=== PATIENT | male | born 1960 | race Caucasian/White ===

== ENCOUNTER 2019-09-29 04:54 | Emergency (ER) | payer OTHER ==
[~2019-09-29] VITALS: Ht 182.9 cm; Wt 195.0 kg
[~2019-09-29 04:54] MED LIST: ATOR20TA66 PO; HYDR-3965 PO; NAPR-232 PO; NITR0.4T SL; PRED10TA PO
[2019-09-29] MEDS ORDERED: GUAI120L55 PO (07:25)
[2019-09-29 07:32] VITALS: BP 139/76
== END 2019-09-29 07:39 | disposition home or self-care (01) ==
LOC: ER 04:56
DX: B34.9 Viral infection, unspecified (principal); R05 Cough; M79.10 Myalgia, unspecified site; E78.00 Pure hypercholesterolemia, unspecified; M19.90 Unspecified osteoarthritis, unspecified site; F17.210 Nicotine dependence, cigarettes, uncomplicated; F12.90 Cannabis use, unspecified, uncomplicated; Z98.890 Other specified postprocedural states; Z79.899 Other long term (current) drug therapy
CPT/HCPCS: 71045; 87502; 87503; 99284

== ENCOUNTER 2019-10-03 04:23 | Emergency (ER) | payer OTHER ==
[~2019-10-03] VITALS: Ht 182.9 cm; Wt 88.6 kg
[~2019-10-03 04:23] MED LIST changes: +GUAI120L55 PO
[2019-10-03 04:27] VITALS: BP 135/78
[2019-10-03] MEDS ORDERED: BENZ-16 PO (04:47)
[2019-10-03] MEDS ORDERED: ALBU8.5H8 INH (04:51)
== END 2019-10-03 04:54 | disposition home or self-care (01) ==
LOC: ER 04:24
DX: R05 Cough (principal); R53.83 Other fatigue; R53.1 Weakness; E78.00 Pure hypercholesterolemia, unspecified; M19.90 Unspecified osteoarthritis, unspecified site; F12.90 Cannabis use, unspecified, uncomplicated; Z98.890 Other specified postprocedural states; Z79.899 Other long term (current) drug therapy
CPT/HCPCS: 99283

== ENCOUNTER 2020-06-29 06:17 | Emergency (ER) | payer OTHER ==
[~2020-06-29] VITALS: Ht 182.9 cm; Wt 88.6 kg
[~2020-06-29 06:17] MED LIST changes: +ALBU8.5H8 INH; -ATOR20TA66 PO; -HYDR-3965 PO; -NAPR-232 PO; -NITR0.4T SL; -PRED10TA PO
[2020-06-29 06:24] VITALS: BP 124/88
== END 2020-06-29 07:53 | disposition home or self-care (01) ==
LOC: ER 06:18
DX: R53.83 Other fatigue (principal); J06.9 Acute upper respiratory infection, unspecified; B34.9 Viral infection, unspecified; R43.8 Other disturbances of smell and taste; R05 Cough; R07.89 Other chest pain; E78.00 Pure hypercholesterolemia, unspecified; F12.90 Cannabis use, unspecified, uncomplicated; M19.90 Unspecified osteoarthritis, unspecified site; Z98.890 Other specified postprocedural states; Z79.899 Other long term (current) drug therapy
CPT/HCPCS: 36415; 99282

== ENCOUNTER 2021-12-07 13:06 | Emergency (ER) | payer OTHER ==
[~2021-12-07] VITALS: Ht 182.9 cm; Wt 91.4 kg
[~2021-12-07 13:06] MED LIST changes: +ALBU8.5H17 INH; -ALBU8.5H8 INH
[2021-12-07 13:21] VITALS: BP 122/67
[2021-12-07 13:51] LABS: BASOPHILS % (AUTO) 0.2 % (0-1); EOSINOPHILS # (AUTO) 0.2 X10'3 (0-0.9); EOSINOPHILS % (AUTO) 2.3 % (0-6); HEMOGLOBIN 14.9 g/dl (14.0-17.9); LYMPHOCYTES # (AUTO) 0.4 X10'3 (1.1-4.8); LYMPHOCYTES % (AUTO) 4.6 % (21-51); MEAN CORPUSCULAR HEMOGLOBIN 29.9 PG (27.0-31.0); MEAN CORPUSCULAR HGB CONC 33.8 g/dL (33.0-36.5); MEAN CORPUSCULAR VOLUME 88.3 FL (78-98); MONOCYTES % (AUTO) 11.5 % (2-12); NEUTROPHILS # (AUTO) 7.1 X10'3 (1.8-7.7); NEUTROPHILS % (AUTO) 81.4 % (42-75); PLATELET COUNT 220 X10'3 (140-440); RED BLOOD COUNT 4.98 X10'6 (4.70-6.10); WHITE BLOOD COUNT 8.7 X10'3 (4.5-11.0)
[2021-12-07 14:06] LABS: ALANINE AMINOTRANSFERASE 21 U/L (12-78); ALBUMIN 3.9 G/DL (3.4-5.0); ALBUMIN/GLOBULIN RATIO 1.1 (1.1-1.5); ALKALINE PHOSPHATASE 56 IU/L (46-116); ANION GAP 6 (8-16); ASPARTATE AMINO TRANSFERASE 15 U/L (10-37); BILIRUBIN,TOTAL 0.6 MG/DL (0.1-1.0); BLOOD UREA NITROGEN 14 MG/DL (7-18); BUN/CREATININE RATIO 16.1 (5.4-32.0); CHLORIDE 104 MMOL/L (99-107); CREATININE 0.87 MG/DL (0.60-1.10); GLUCOSE 92 MG/DL (70-104); POTASSIUM 3.7 MMOL/L (3.5-5.1); SODIUM 136 MMOL/L (135-145); TOTAL PROTEIN 7.4 G/DL (6.4-8.2); eGFR 89 ML/MIN
--- NOTE | 2021-12-07 15:48 | NUR ---
DR. SHELTON AT BEDSIDE.
[2021-12-07] MEDS ORDERED: ringers solution, lacted 1,000 ML IV ONE (16:00)
[2021-12-07] MEDS ORDERED: acetaminophen 325mg tablet PO ONE (16:25)
[2021-12-07] MEDS ORDERED: NIRM1TAB PO (16:55)
[2021-12-07] MEDS ORDERED: ondansetron 4mg rapidly disintigrating tab PO ONE (18:05)
== END 2021-12-07 18:15 | disposition home or self-care (01) ==
LOC: ER 13:10
DX: U07.1 COVID-19 (principal); R07.89 Other chest pain; E78.00 Pure hypercholesterolemia, unspecified; M19.90 Unspecified osteoarthritis, unspecified site; F12.90 Cannabis use, unspecified, uncomplicated; Z87.81 Personal history of (healed) traumatic fracture; Z79.899 Other long term (current) drug therapy
CPT/HCPCS: 36415; 71045; 80053; 83880; 84484; 85025; 87502; 87503; 87635; 93005; 96360; 99285; C9803; J7120

== ENCOUNTER 2021-12-13 23:45 | Emergency (ER) | payer OTHER ==
[~2021-12-13] VITALS: Ht 177.8 cm; Wt 95.4 kg
[~2021-12-13 23:45] MED LIST changes: +NIRM1TAB PO
[2021-12-13 23:56] VITALS: BP 140/92
== END 2021-12-14 01:44 | disposition left against medical advice (07) ==
LOC: ER 23:46
DX: R06.02 Shortness of breath (principal); R07.89 Other chest pain; Z53.21 Procedure and treatment not carried out due to patient leaving prior to being seen by health care provider

== ENCOUNTER 2024-08-27 10:13 | Emergency (ER) | payer OTHER ==
[~2024-08-27] VITALS: Ht 180.3 cm; Wt 87.1 kg
[2024-08-27 10:30] VITALS: BP 101/63
[2024-08-27] MEDS: acetaminophen 325mg tablet PO ONE (10:45)
[2024-08-27] MEDS: ipratropium/albuterol 3ml nebule NEB STA (13:29)
[2024-08-27 13:30] VITALS: PULSE 69; RESP 18; O2SAT 98
[2024-08-27 13:37] VITALS: PULSE 97; RESP 18; O2SAT 99
[2024-08-27] MEDS: dexamethasone sod phosphate 10mg/ml inj IM STA (14:13)
[2024-08-27] MEDS ORDERED: ALBU8HFA INH (14:18)
[2024-08-27] MEDS ORDERED: BENZ-38 PO (14:18)
[2024-08-27] MEDS ORDERED: PROM25TA14 PO (14:18)
[2024-08-27] MEDS ORDERED: ACET1TAB96 PO (14:18)
[2024-08-27 14:54] VITALS: TEMP 101.1
== END 2024-08-27 14:57 | disposition home or self-care (01) ==
LOC: ER 10:14
DX: J22 Unspecified acute lower respiratory infection (principal); E78.00 Pure hypercholesterolemia, unspecified; M19.90 Unspecified osteoarthritis, unspecified site; F12.90 Cannabis use, unspecified, uncomplicated; Z98.890 Other specified postprocedural states; Z20.822 Contact with and (suspected) exposure to COVID-19
CPT/HCPCS: 36415; 71045; 87502; 87503; 87811; 94640; 96372; 99284; J1100; 94760

== ENCOUNTER 2024-08-31 22:54 | Emergency (ER) | payer OTHER ==
[~2024-08-31] VITALS: Ht 182.9 cm; Wt 94.0 kg
[~2024-08-31 22:54] MED LIST changes: +ACET1TAB96 PO; +ALBU8HFA INH; +BENZ-38 PO; +PROM25TA14 PO
[2024-08-31 23:13] VITALS: BP 156/89
[2024-08-31 23:17] LABS: BASOPHILS % (AUTO) 0.5 % (0-1); EOSINOPHILS % (AUTO) 0.1 % (0-6); HEMATOCRIT 42.7 % (42.0-52.0); HEMOGLOBIN 15.1 g/dl (14.0-17.9); LYMPHOCYTES # (AUTO) 1.7 X10'3 (1.1-4.8); LYMPHOCYTES % (AUTO) 29.6 % (21-51); MEAN CORPUSCULAR HEMOGLOBIN 30.7 PG (27.0-31.0); MEAN CORPUSCULAR HGB CONC 35.3 g/dL (33.0-36.5); MEAN CORPUSCULAR VOLUME 86.9 FL (78-98); MEAN PLATELET VOLUME 6.9 FL (7.4-10.4); MONOCYTES % (AUTO) 17.6 % (2-12); NEUTROPHILS % (AUTO) 52.2 % (42-75); PLATELET COUNT 154 X10'3 (140-440); RED BLOOD COUNT 4.92 X10'6 (4.70-6.10); RED CELL DISTRIBUTION WIDTH 12.7 % (11.5-14.5); WHITE BLOOD COUNT 5.7 X10'3 (4.5-11.0)
[2024-08-31 23:27] LABS: ALANINE AMINOTRANSFERASE 52 U/L (12-78); ALBUMIN 3.4 G/DL (3.4-5.0); ALBUMIN/GLOBULIN RATIO 0.9 (1.1-1.5); ALKALINE PHOSPHATASE 61 IU/L (46-116); ANION GAP 9 (8-16); ASPARTATE AMINO TRANSFERASE 47 U/L (10-37); BILIRUBIN,TOTAL 0.8 MG/DL (0.1-1.0); BLOOD UREA NITROGEN 11 MG/DL (7-18); BUN/CREATININE RATIO 16.7 (10.0-20.0); CALCIUM 8.2 MG/DL (8.5-10.1); CHLORIDE 96 MMOL/L (99-107); CREATININE 0.66 MG/DL (0.60-1.10); GLUCOSE 100 MG/DL (70-104); POTASSIUM 3.2 MMOL/L (3.5-5.1); SODIUM 134 MMOL/L (135-145); TOTAL CARBON DIOXIDE 29.1 MMOL/L (24-32); TOTAL PROTEIN 7.1 G/DL (6.4-8.2); eCRCL 124 ML/MIN; eGFR > 90 ML/MIN
[2024-08-31 23:37] LABS: LIPASE 39 U/L (16-77)
[2024-08-31 23:52] LABS: TOTAL CELLS COUNTED 100
[2024-09-01] MEDS ORDERED: ONDA-243 PO (05:31)
[2024-09-01 05:43] LABS: MAGNESIUM 1.7 MG/DL (1.5-2.4)
[2024-09-01] MEDS: D5-1/2NS w/20 mEq potassium per 1000ml IV ONE (06:00)
[2024-09-01] MEDS: ondansetron/PF 4mg/2ml inj IV ONE (06:00)
[2024-09-01] MEDS: normal saline 1000ML IV soln IVB ONE (06:00)
[2024-09-01] MEDS: ipratropium/albuterol 3ml nebule NEB PRN (06:56)
[2024-09-01 06:59] VITALS: PULSE 89; PULSE 93; RESP 16; RESP 18; O2SAT 96
[2024-09-01 07:07] LABS: BILIRUBIN,URINE NEGATIVE (Neg); CLARITY,URINE CLEAR (Clear); COLOR,URINE YELLOW (Yellow); GLUCOSE, URINE >=1000 mg/dl (Neg); KETONES,URINE 15 mg/dl (Neg); LEUKOCYTE ESTERASE ,URINE NEGATIVE (Neg); NITRITES, URINE NEGATIVE (Neg); OCCULT BLOOD,URINE NEGATIVE (Neg); PROTEIN,URINE NEGATIVE (Neg); UROBILINOGEN,URINE 0.2 E.U/dL (0.2-1.0)
[2024-09-01 07:13] LABS: UA COLLECTION TYPE CLN CATCH MIDSTREAM
[2024-09-01] MEDS: dexamethasone sod phosphate 10mg/ml inj IV STA (07:15)
[2024-09-01 07:31] LABS: BACTERIA,URINE NONE SEEN /HPF (Neg); MUCUS STRANDS NONE SEEN /LPF (Neg); RBC,URINE NONE SEEN /HPF (0-2); SQUAMOUS EPITHELIAL CELL,UR FEW /LPF (FEW); WBC,URINE 0-4 /HPF (0-4)
[2024-09-01 07:32] VITALS: RESP 19; TEMP 98; O2SAT 79
== END 2024-09-01 08:00 | disposition home or self-care (01) ==
LOC: ER 22:55
DX: A08.4 Viral intestinal infection, unspecified (principal); E86.0 Dehydration; E78.00 Pure hypercholesterolemia, unspecified; M19.90 Unspecified osteoarthritis, unspecified site; F12.90 Cannabis use, unspecified, uncomplicated; Z98.890 Other specified postprocedural states; Z79.899 Other long term (current) drug therapy; Z20.822 Contact with and (suspected) exposure to COVID-19
CPT/HCPCS: 36415; 71045; 80053; 81001; 83690; 83735; 85007; 85025; 87502; 87503; 87811; 93005; 96374; 96375; 99285; J1100; J2405; J3480; J7030